=== PATIENT | male | born 1955 | race African-American/Black ===

== ENCOUNTER 2017-01-04 10:11 | Emergency (ER) | payer OTHER ==
[2017-01-04 10:23] VITALS: TEMP 98.8; BMI 20.3
[2017-01-04] MEDS ORDERED: ADENOSINE 6 MG/2 ML VIAL IVPUSH ONE ×2 (10:47→11:00)
[2017-01-04] MEDS ORDERED: SODIUM CHLORIDE 1,000 ML IV STA (11:00)
--- NOTE | 2017-01-04 11:11 | PDOC ---
History of Present Illness - General History Source: Patient Exam Limitations: No Limitations - History of Present Illness Initial Comments: 01/04/17 11:17 The patient is a 61-year-old man, accompanied by his daughter with a significant past medical history of hypertension and non-insulin diabetes mellitus who was sent to the emergency department by his [employer] Helper Dr. Rafal Gannon for further evaluation of palpitations. Patient was NPO overnight and this morning for a scheduled outpatient colonoscopy. Pre procedural vital signs were taken and the patient was noted to have a heart rate of 170 bpm in SVT. Patient was transferred to the ED for further evaluation. Upon brief interview, patient reports that he had a similar episode, approximately 2 weeks ago and states he was evaluated and "everything was fine" . Currently, the patient denies chest pain, chest pressure, cough, shortness of breath, lightheadedness, dizziness, headache, neck pain, visual changes, abdominal pain, nausea, vomiting, fever, chills, generalized weakness. No history of previous MIs. No previous stent placements. Allergies: No Known Drug Allergies Past Surgical History: None reported Social History: No tobacco, EtOH and former recreational drug use. Primary Care Physician: Dr. Simi Damon <Tammy Frazier - Last Filed: 01/04/17 11:54> <Messi Leiva - Last Filed: 01/04/17 12:22> - General Chief Complaint: Palpitations Stated Complaint: PALPITATIONS Time Seen by Provider: 01/04/17 10:33 Past History <Tammy Frazier - Last Filed: 01/04/17 11:54> - Past Medical History Cardiac Disorders: Yes Diabetes: Yes HTN: Yes Other medical history: INSOMNIA - Psycho/Social/Smoking Cessation Hx Anxiety: No Suicidal Ideation: No Smoking History: Never smoked Hx Alcohol Use: No Drug/Substance Use Hx: No Substance Use Type: None <Messi Leiva - Last Filed: 01/04/17 12:22> - Past Medical History Allergies/Adverse Reactions: Allergies Allergy/AdvReac Type Severity Reaction Status Date / Time No Known Allergies Allergy Verified 01/04/17 10:23 Home Medications: Ambulatory Orders Unobtainable [Unobtainable] 01/04/17 Review of Systems - Review of Systems Constitutional: No: Chills, Fever Respiratory: No: Cough, Shortness of Breath Cardiac (ROS): No: Chest Pain, Edema, Lightheadedness, Palpitations, Syncope ABD/GI: No: Nausea, Vomiting Neurological: No: Headache All Other Systems: Reviewed and Negative <Messi Leiva - Last Filed: 01/04/17 12:22> *Physical Exam - Vital Signs Last Vital Signs Temp Pulse Resp BP Pulse Ox 98.8 F 179 H 20 102/85 100 01/04/17 10:15 01/04/17 10:15 01/04/17 10:15 01/04/17 10:55 01/04/17 10:15 - Physical Exam Comments: 01/04/17 11:17 GENERAL: The patient is awake, alert, and fully oriented, in no acute distress. HEAD: Normal with no signs of trauma. EYES: Pupils equal, round and reactive to light, extraocular movements intact, sclera anicteric, conjunctiva clear with no pallor. ENT: Ears normal, nares patent, oropharynx clear without exudates. Moist mucous membranes. NECK: Normal range of motion, supple without lymphadenopathy, JVD, or masses. LUNGS: Breath sounds equal, clear to auscultation bilaterally. No wheeze/ crackles. HEART: Tachycardic, Regular rate and rhythm without murmur or rub. ABDOMEN: Soft/nontender/nondistended. BS wnl. No guarding or rebound. No palpable masses. No hepatosplenomegaly. EXTREMITIES: Normal range of motion, no edema. No clubbing or cyanosis. No cords, erythema, or tenderness. 2+ distal pulses. NEUROLOGICAL: Cranial nerves II through XII grossly intact. Normal speech. PSYCH: Normal mood, normal affect. SKIN: Warm, Dry, normal turgor, no rashes or lesions noted. <Tammy Frazier - Last Filed: 01/04/17 11:54> - Vital Signs Last Vital Signs Temp Pulse Resp BP Pulse Ox 98.8 F 179 H 20 109/78 100 01/04/17 10:15 01/04/17 10:15 01/04/17 10:15 01/04/17 10:15 01/04/17 10:15 <Messi Leiva - Last Filed: 01/04/17 12:22> Heart Score/ECG Review #1 ECG reviewed & interpreted by me at: 10:21 01/04/17 11:05 SVT at 172 with an APC, a PVC noted, no acute ischemia #2 ECG reviewed & interpreted by me at: 10:57 General ECG Interpretation: Sinus Rhythm, Normal Rate (99), Normal Intervals ( qtc 402), No acute ischemic changes <Messi Leiva - Last Filed: 01/04/17 12:22> ED Treatment Course - LABORATORY CBC & Chemistry Diagram: 01/04/17 10:55 01/04/17 11:00 - RADIOLOGY Radiograph Interpretation: 01/04/17 11:54 EXAM: RAD/CHEST X-RAY PORTABLE Interpreted by Dr. Jagdeep Lewis IMPRESSION: Left supraclavicular vascular catheter in place. No evidence of pneumonia, CHF, pleural effusion, or pneumothorax. No evidence of widening of the superior mediastinum. Uncoiled thoracic aorta. The cardiac silhouette is not enlarged. Degenerative changes are noted in the thoracic spine. - Medications Given in the ED: ED Medications Discontinued Medications Generic Name Dose Route Start Last Admin Trade Name Freq PRN Reason Stop Dose Admin Adenosine 6 mg 01/04/17 11:00 01/04/17 10:55 Adenocard - IVPUSH 01/04/17 11:01 6 mg ONCE ONE Administration <Tammy Frazier - Last Filed: 01/04/17 11:54> - LABORATORY CBC & Chemistry Diagram: 01/04/17 10:55 01/04/17 10:55 - RADIOLOGY Radiology Studies Ordered: Category Date Time Status CHEST X-RAY PORTABLE* [RAD] Stat Radiology 01/04/17 11:00 Ordered <Messi Leiva - Last Filed: 01/04/17 12:22> Medical Decision Making - Critical Care Time Total Critical Care Time (minutes): 40 Critical Care Statement: The care of this patient involved high complexity decision making to prevent further life threatening deterioration of the patient 's condition and/or to evalute & treat vital organ system(s) failure or risk of failure. - Medical Decision Making 01/04/17 11:06 A portion of this note was documented by scribe services under my direction. I have reviewed the details of the note, within reason, and agree with the documentation with the following case summary and management plan written by me. 61-year-old male with history of hypertension, diabetes sent from Dr. Gannon's office for tachycardia. Patient presented for routine colonoscopy is morning, was feeling well but one placed on monitor was noted to have a heart rate of 170. The patient was referred to the emergency department for further management. The patient is completely asymptomatic, other than doing his prep and being nothing by mouth since this morning and skipping his morning medications, denies any recent infectious or dehydration complaints. He has no chest pain or lightheadedness, no shortness of breath. Had a similar episode in the past about 2 months ago, refused care and it apparently resolved on its own. He states he had a normal clearance evaluation for his colonoscopy about 2 weeks ago. Heart rate 170, blood pressure 110/70, O2 sat 99%. Patient is in no distress whatsoever, he is ambulating and speaking full sentences, joking with the staff Heart is regular tachycardia Remainder of exam is normal Patient was immediately placed on monitor and IV established and EKG performed. Labs were sent, Zoll was placed, and IV fluids were initiated. At that is seen 6 mg IV push was administered with resolution of the SVT and cardioversion to sinus rhythm at 99 without acute ischemia. The patient tolerated the procedure well, remained hemodynamically stable. Will check labs/electrolytes Check troponin IV fluid hydration If remains well appearing and with improved vital signs, and labs are not concerning, potential discharge 01/04/17 12:20 Labs are within normal limits, electrolytes normal, troponin negative. Remained in sinus rhythm with heart rate in the 90s, remained very well-appearing and asymptomatic, speaking full sentences and tolerating by mouth and ambulating steadily. He has no cardiopulmonary complaints, wants to be discharged, will follow-up with his primary physician. Understands return criteria. Family at bedside will accompany him home. <Messi Leiva - Last Filed: 01/04/17 12:22> *DC/Admit/Observation/Transfer - Attestations Scribe Attestion: 01/04/17 11:17 Documentation prepared by Tammy Frazier, acting as medical attendant for Messi Leiva MD. <Tammy Frazier - Last Filed: 01/04/17 11:54> <Messi Leiva - Last Filed: 01/04/17 12:22> Diagnosis at time of Disposition: SVT (supraventricular tachycardia) - Discharge Dispostion Disposition: HOME Condition at time of disposition: Improved - Referrals Referrals: iSmi Boudreaux MD [Primary Care Provider] - - Patient Instructions Printed Discharge Instructions: Paroxysmal Supraventricular Tachycardia Additional Instructions: Activity as tolerated. Stay well hydrated. Your heart rate went very fast, possibly due to dehydration and skipping your medications. Your heart rate is now controlled and your blood tests showed no acute abnormalities. Continue your medications as previously prescribed by your physician. You should follow up with your primary doctor as soon as possible regarding today's emergency department visit. Also consider seeing a commissary manager if symptoms persist. Return to the emergency department for any new or concerning symptoms, particularly chest pain or difficulty breathing, palpitations or lightheadedness or passing out, fevers or chills.
[2017-01-04 11:21] LABS: BASOPHIL 0.4 % (0-2.0); EOSINOPHIL 1.1 % (0-4.5); MCH 30.9 pg (25.7-33.7); MEAN CELL VOLUME 93.5 fl (80-96); MEAN PLT VOLUME 7.7 fl (7.5-11.1); NEUTROPHILS 70.3 % (42.8-82.8); PLATELET COUNT 185 K/MM3 (134-434); RDW 13.7 % (11.9-15.9); WHITE BLOOD COUNT 5.9 K/mm3 (4.0-10.0)
[2017-01-04 11:38] LABS: INR 1.19 (0.82-1.09); PROTHROMBIN TIME (PATIENT) 13.1 SEC (9.98-11.88)
[2017-01-04 11:53] LABS: ALBUMIN 3.9 g/dl (3.4-5.0); ANION GAP 8 (8-16); BILIRUBIN,TOTAL 0.4 mg/dL (0.2-1.0); CO2 25 mmol/L (21-32); COCKROFT - GAULT 55.97; CREATININE 1.3 mg/dL (0.7-1.3); GLUCOSE,RANDOM 128 mg/dL (74-106); MAGNESIUM 1.7 mg/dL (1.8-2.4); SGOT/AST 14 U/L (15-37); SGPT/ALT 24 U/L (12-78); TOT PROT 6.4 g/dl (6.4-8.2)
[2017-01-04 11:56] LABS: ALK PHOS 49 U/L (45-117); TROPONIN I < 0.02 ng/ml (0.00-0.05)
[2017-01-04 12:32] VITALS: BP 109/85; PULSE 99
--- NOTE | 2017-01-04 12:49 | EKG ---
Test Reason : Blood Pressure : / mmHG Vent. Rate : 172 BPM Atrial Rate : 144 BPM P-R Int : 000 ms QRS Dur : 072 ms QT Int : 296 ms P-R-T Axes : 000 -31 -29 degrees QTc Int : 500 ms POOR DATA QUALITY, INTERPRETATION MAY BE ADVERSELY AFFECTED SUPRAVENTRICULAR TACHYCARDIA WITH PREMATURE VENTRICULAR COMPLEXES OR FUSION COMPLEXES LEFT AXIS DEVIATION ABNORMAL ECG WHEN COMPARED WITH ECG OF 19-FEB-2016 11:43, SIGNIFICANT CHANGES HAVE OCCURRED Confirmed by SCOTT VERMA MD ([id number]) on 01/04/2017 12:49:10 PM Referred By: Confirmed By:SCOTT VERMA MD
--- NOTE | 2017-01-05 16:02 | EKG ---
Test Reason : Blood Pressure : / mmHG Vent. Rate : 099 BPM Atrial Rate : 099 BPM P-R Int : 132 ms QRS Dur : 080 ms QT Int : 314 ms P-R-T Axes : 067 -17 061 degrees QTc Int : 402 ms NORMAL SINUS RHYTHM WITH SINUS ARRHYTHMIA NORMAL ECG WHEN COMPARED WITH ECG OF 04-JAN-2017 10:21, FUSION COMPLEXES ARE NO LONGER PRESENT PREMATURE VENTRICULAR COMPLEXES ARE NO LONGER PRESENT VENT. RATE HAS DECREASED BY [address] NO LONGER DEPRESSED IN ANTEROLATERAL LEADS T WAVE INVERSION NO LONGER EVIDENT IN ANTEROLATERAL LEADS Confirmed by JOSETTE STYLES MD ([id number]) on 01/05/2017 4:01:47 PM Referred By: Confirmed By:JOSETTE STYLES MD
== END 2017-01-04 12:32 | disposition home or self-care (01) ==
LOC: JER 10:11
PROC: 3E033GC Introduction of Other Therapeutic Substance into Peripheral Vein, Percutaneous Approach (ICD-10-PCS; principal; 2017-01-04)
DX: I47.1 Supraventricular tachycardia (principal); I10 Essential (primary) hypertension; E11.9 Type 2 diabetes mellitus without complications; Z79.84 Long term (current) use of oral hypoglycemic drugs; G47.00 Insomnia, unspecified
CPT/HCPCS: 71010-TC; 80053; 82550; 83735; 84484; 85610; 93005; 93010; 99285-25

== ENCOUNTER → 2017-04-26 | Emergency (ER) | payer OTHER ==
[2017-04-26 19:02] VITALS: BP 149/75; PULSE 122; TEMP 98.5; BMI 20.2
--- NOTE | 2017-04-26 20:17 | PDOC ---
*Physical Exam - Vital Signs Last Vital Signs Temp Pulse Resp BP Pulse Ox 98.5 F 122 H 20 149/75 100 04/26/17 18:58 04/26/17 18:58 04/26/17 18:58 04/26/17 18:58 04/26/17 18:58 Medical Decision Making - Medical Decision Making 04/26/17 20:15 Pt and daughter left before being seen by me. Became frustrated and decided to leave. Resident who started to see pt did have family sign AMA form then they left.
--- NOTE | 2017-04-26 20:18 | PDOC ---
History of Present Illness - General Chief Complaint: Altered Mental Status Stated Complaint: EVALUATION Time Seen by Provider: 04/26/17 19:34 History Source: Patient, Family Exam Limitations: No Limitations - History of Present Illness Initial Comments: This is a 62 yom with h/o hip replacement about a year ago who presents with his daughter who brought him to the ED for progressively declining health. She explains that since his hip surgery last year, he has lost 100 lbs, has had a "bad diet", and has had intermittent diarrhea. She expresses concern that he has been increasingly confused and forgetful, and has been hallucinating that there are bugs in front of his face. She notes that he swipes at the air in front of him thinking that he is swiping the bugs away. Nothing in particular happened today that brought them into the emergency department; his symptoms have been insidious in onset for the past year. He has a primary care doctor ( Simi Castillo) and has an appointment with her in about a month. The remainder of the HPI cannot be obtained because the patient and his daughter leave before it can be completed. Past History - Past Medical History Allergies/Adverse Reactions: Allergies Allergy/AdvReac Type Severity Reaction Status Date / Time No Known Allergies Allergy Verified 04/26/17 19:02 Home Medications: Ambulatory Orders Unobtainable [Unobtainable] 01/04/17 Cardiac Disorders: Yes Diabetes: Yes HTN: Yes - Psycho/Social/Smoking Cessation Hx Anxiety: No Suicidal Ideation: No Smoking History: Current some day smoker Number of Cigarettes Smoked Daily: 4 Information on smoking cessation initiated: No Hx Alcohol Use: Yes (SOCIAL) Drug/Substance Use Hx: No Substance Use Type: None Review of Systems - Review of Systems Able to Perform ROS?: No (patient leaves the ED) *Physical Exam - Vital Signs Last Vital Signs Temp Pulse Resp BP Pulse Ox 98.5 F 122 H 20 149/75 100 04/26/17 18:58 04/26/17 18:58 04/26/17 18:58 04/26/17 18:58 04/26/17 18:58 04/26/17 20:21 The patient leaves before physical exam can be started *DC/Admit/Observation/Transfer Diagnosis at time of Disposition: Patient left before evaluation by physician - Discharge Dispostion Disposition: LEFT BEFORE STEVE MAHONEY
== END | disposition left against medical advice (07) ==
LOC: JER 18:50
DX: Z53.21 Procedure and treatment not carried out due to patient leaving prior to being seen by health care provider (principal)
CPT/HCPCS: 99281-25